=== PATIENT | male | born 1995 | race Caucasian/White ===

== ENCOUNTER → 2017-01-30 | Outpatient (CLI) | payer BC | END | disposition home or self-care (01) | LOC: C.LABSPEC 12:45 | PROVIDERS: ATTEND Psychiatry & Neurology Neurology | DX: R51 Headache (principal) ==

== ENCOUNTER → 2017-02-05 | Outpatient (CLI) | payer BC ==
[~2017-02-05] MED LIST: GADAVIST IV PRN
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
== END | disposition home or self-care (01) ==
LOC: C.MRI 13:51
PROVIDERS: ATTEND Psychiatry & Neurology Neurology
DX: R51 Headache (principal); R42 Dizziness and giddiness; F07.81 Postconcussional syndrome

== ENCOUNTER 2017-11-13 12:39 | Emergency (ER) | payer BC, OTHER ==
[~2017-11-13] VITALS: Ht 172.7 cm; Wt 81.0 kg
[2017-11-13 12:57] VITALS: TEMP 37.1; Ht 172.7 cm; Wt 81.0 kg
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
[2017-11-13 15:38] VITALS: BP 114/63; PULSE 56; O2SAT 99
== END 2017-11-13 15:40 | disposition home or self-care (01) ==
LOC: C.EDB 12:41 → C.EDD 15:40
DX: M54.2 Cervicalgia (principal); V89.2XXA Person injured in unspecified motor-vehicle accident, traffic, initial encounter